=== PATIENT | female | born 1955 | race Caucasian/White ===

== ENCOUNTER 2021-09-05 05:26 | Observation (INO) | payer MEDICARE ==
[~2021-09-05] VITALS: Ht 162.6 cm; Wt 90.7 kg
[~2021-09-05 05:26] MED LIST: CARDIZEM CD120 MG PO; CELEBREX 100MG100 MG PO; CYMBALTA60 MG PO; FENOFIBRATE160 MG PO; FLEXERIL 10 MG10 MG PO; HAIR, SKIN & N1 EACH PO; HYDROCHLOROTHIA25 MG PO; HYDROCODON-ACE1 EAC6 PO; HYDROXYZINE HCL25 MG PO; LAMICTAL100 MG PO; METOPROLOL SUCC50 MG PO; NEURONTIN400 MG PO; NORCO 10-325 T1 EACH PO; NORVASC 5 MG TAB5 MG PO; NORVASC2.5 MG PO; PHENERGAN 25 MG25 M1 PO; PROBIOTIC1 EAC3 PO; PROTONIX40 M1 PO; PROTONIX40 MG PO; SYNTHROID125 MCG PO; TRAZODONE HCL100 MG PO; VITAMIN D32000 UNI1 PO; Voltaren Gel 1 % TOP; ZOFRAN4 MG PO; ZYPREXA5 MG PO
[2021-09-05 06:26] LABS: HEMOGLOBIN 11.6 gm/dl (12.3-15.3); RED BLOOD COUNT 4.15 M/UL (4.00-5.10); WHITE BLOOD COUNT 7.1 K/UL (4.5-11.0)
[2021-09-05 07:04] LABS: BUN/CREATININE RATIO 13 (0-10)
[2021-09-05] MEDS ORDERED: OLANZAPINE20 MG PO (09:58)
[2021-09-05] MEDS ORDERED: CYCLOBENZAPRINE10 MG PO (09:59)
[2021-09-05] MEDS ORDERED: ASPIRIN EC81 MG PO (09:59)
[2021-09-05] MEDS ORDERED: VITAMIN D350 MCG PO (09:59)
[2021-09-06 06:36] LABS: HEMOGLOBIN 11.5 gm/dl (12.3-15.3); RED BLOOD COUNT 3.98 M/UL (4.00-5.10); WHITE BLOOD COUNT 8.1 K/UL (4.5-11.0)
--- NOTE | 2021-09-06 11:53 | NUR ---
AMBULATED PATIENT ON ROOM AIR, SAT REMAINED 92%.
[2021-09-06] MEDS ORDERED: MEDROL DOSEPAK 24 MG PO (11:57)
[2021-09-06] MEDS ORDERED: PROVENTIL HFA6.7 GM INH (11:57)
== END 2021-09-06 12:38 | disposition home or self-care (01) ==
LOC: ER1 05:26 → CDU 08:25 → MED SURG 4 08:25
PROVIDERS: Family Medicine; Physician Assistant Medical; ADMIT Internal Medicine
DX: J96.01 Acute respiratory failure with hypoxia (principal); Z20.822 Contact with and (suspected) exposure to COVID-19; I25.10 Atherosclerotic heart disease of native coronary artery without angina pectoris; E66.2 Morbid (severe) obesity with alveolar hypoventilation; E03.9 Hypothyroidism, unspecified; E78.5 Hyperlipidemia, unspecified; I73.9 Peripheral vascular disease, unspecified; G89.4 Chronic pain syndrome; I10 Essential (primary) hypertension; Z68.34 Body mass index [BMI] 34.0-34.9, adult; Z79.82 Long term (current) use of aspirin; Z79.899 Other long term (current) drug therapy; Z85.43 Personal history of malignant neoplasm of ovary; Z88.8 Allergy status to other drugs, medicaments and biological substances; Z95.2 Presence of prosthetic heart valve
CPT/HCPCS: 0240U; 36415; 36600; 71045; 80048; 80053; 82550; 82553; 82803; 83605; 83735; 83880; 84484; 85025; 85027; 85379; 87040; 94640; 94664; 94760; 96374; 96375; 96376; 99285; G0378; J0360; J0696; J2930; Q9967

== ENCOUNTER → 2022-01-01 | Outpatient (CLI) | payer MEDICARE ==
[~2022-01-01] MED LIST changes: +ASPIRIN EC81 MG PO; +CYCLOBENZAPRINE10 MG PO; +MEDROL DOSEPAK 24 MG PO; +OLANZAPINE20 MG PO; +PROVENTIL HFA6.7 GM INH; +VITAMIN D350 MCG PO
== END ==
LOC: MRI 08:30
DX: H53.40 Unspecified visual field defects (principal); R90.82 White matter disease, unspecified
CPT/HCPCS: 36415; 70543; 70553; 82565; 84520; A9577

== ENCOUNTER 2022-02-02 22:48 | Emergency (ER) | payer MEDICARE ==
[2022-02-03 00:24] LABS: HEMOGLOBIN 13.2 gm/dl (12.3-15.3); RED BLOOD COUNT 4.44 M/UL (4.00-5.10)
[2022-02-03] MEDS ORDERED: OMNICEF 300 MG300 MG PO (03:24)
== END 2022-02-03 12:30 | disposition home or self-care (01) ==
LOC: ER1 22:48
PROVIDERS: Student in an Organized Health Care Education/Training Program
DX: M54.9 Dorsalgia, unspecified (principal); J18.9 Pneumonia, unspecified organism; I10 Essential (primary) hypertension; W19.XXXA Unspecified fall, initial encounter
CPT/HCPCS: 0240U; 70450; 71045; 80053; 81001; 82550; 82553; 84484; 85025; 93005; 96360; 99284